=== PATIENT | female | born 1985 | race Hispanic/Latino ===

== ENCOUNTER 2017-12-16 12:36 | Emergency (ER) | payer SELFPAY ==
[2017-12-16] MEDS ORDERED: KETOROLAC 30 MG/ML INJ ONE (14:27)
[2017-12-16 14:33] LABS: Absolute Lymphocytes (CBC) 2.2 K/uL (0.7-4.9); Absolute Monocytes 0.4 K/uL (0.1-1.3); Absolute Neutrophil 2.3 K/uL (1.8-8.0); Basophils % 0.4 % (0-1.3); Eosinophils % 0.9 % (0-4.4); Hematocrit 42.1 % (36.0-45.0); Lymphocytes % 44.3 % (15.3-44.8); MCH 28.8 pg (27.0-35.0); MCV 85.8 fL (80-100); MPV 10.2 fL (7.6-11.3); Monocytes % 8.1 % (3.3-12.3); RBC Red Blood Cell Count 4.91 M/uL (3.86-4.86)
[2017-12-16 14:53] LABS: Protime INR 1.04
[2017-12-16 14:55] LABS: Urine Blood NEGATIVE (NEG); Urine Glucose NEGATIVE (NEG); Urine Protein NEGATIVE (NEG); Urine Specific Gravity 1.025 (1.005-1.030)
[2017-12-16 15:02] LABS: Bicarbonate 28 mEq/L (21-31); Glucose Level 94 mg/dL (65-120); Potassium 3.6 mEq/L (3.6-5.0); Sodium Level 137 mEq/L (135-145)
[2017-12-16 15:07] LABS: ALT/SGPT 18 IU/L (10-60); AST/SGOT 18 IU/L (10-42); Albumin 4.4 g/dL (3.2-5.5); Alkaline Phosphatase 72 IU/L (42-121); BUN Blood Urea Nitrogen 8 mg/dL (6-20); Bilirubin Direct 0.1 mg/dL (0-0.2); Bilirubin Total 0.6 mg/dL (0.3-1.2); Magnesium 1.8 mg/dL (1.8-2.5); Protein, Total 8.1 g/dL (6.0-8.3)
--- NOTE | 2017-12-16 15:08 | RAD REPORT ---
EXAM DESCRIPTION: RAD - Chest Single View - 12/16/2017 2:22 pm CLINICAL HISTORY: Sternal chest pain COMPARISON: None. TECHNIQUE: AP portable chest image was obtained 1419 hours . FINDINGS: Lungs are clear. Heart and vasculature are normal. No measurable pleural effusion and no p neumothorax. No gross bony abnormality seen. No acute aortic findings suspected. IMPRESSION: No acute cardiopulmonary process.
[2017-12-16 16:11] LABS: Urine Specific Gravity 1.025 (1.005-1.030)
--- NOTE | 2017-12-16 18:17 | EDPHYS ---
Physician Documentation [facility] Name: Kassandra Gonsalez Age: 32 yrs Sex: Female : 1985 Arrival Date: 12/16/2017 Time: 12:38 Bed 24 Private MD: None, None ED Physician Marquis Holbrook HPI: 12/16 18:10 This 32 yrs old Female presents to ER via Ambulatory with complaints of Chest kdr Pain. 18:10 The patient or guardian reports chest pain that is located primarily in the substernal kdr area, anterior chest wall, bilaterally, xyphoid area and mid-sternal area. The pain radiates to Associated signs and symptoms: Pertinent positives: None. Pertinent negatives: diaphoresis, dizziness, headache, lower extremity pain, lower extremity swelling, nausea, palpitations, shortness of breath. The chest pain is described as aching, dull. Duration: The patient or guardian reports a single episode, that is still ongoing, but improving. Modifying factors: The symptoms are alleviated by nothing. the symptoms are aggravated by nothing. Severity of pain: At its worst the pain was moderate in the emergency department the pain has improved moderately. The patient has not experienced similar symptoms in the past. The patient has not recently seen a physician. The patient was sitting at her desk with no apparent precipitating activity or events and started to have sharp chest pain. 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 - Social history:: Smoking status: Patient/guardian denies using tobacco. - Ebola Screening: : No symptoms or risks identified at this time. ROS: 18:10 Constitutional: Negative for fever, chills, and weight loss, Eyes: Negative for injury, kdr pain, redness, and discharge, ENT: Negative for injury, pain, and discharge, Neck: Negative for injury, pain, and swelling, Respiratory: Negative for shortness of breath, cough, wheezing, and pleuritic chest pain, Abdomen/GI: Negative for abdominal pain, nausea, vomiting, diarrhea, and constipation, Back: Negative for injury and pain, : Negative for injury, bleeding, discharge, and swelling, MS/Extremity: Negative for injury and deformity, Skin: Negative for injury, rash, and discoloration, Neuro: Negative for headache, weakness, numbness, tingling, and seizure activity. Psych: Negative for depression, anxiety, suicide ideation, homicidal ideation, and hallucinations, Allergy/Immunology: Negative for hives, rash, and allergies, Endocrine: Negative for neck swelling, polydipsia, polyuria, polyphagia, and marked weight changes, Hematologic/Lymphatic: Negative for swollen nodes, abnormal bleeding, and unusual bruising. 18:10 Cardiovascular: Positive for chest pain, Negative for edema, orthopnea, palpitations, paroxysmal nocturnal dyspnea. Exam: 18:10 Constitutional: This is a well developed, well nourished patient who is awake, alert, kdr and in no acute distress. Head/Face: Normocephalic, atraumatic. Eyes: Pupils equal round and reactive to light, extra-ocular motions intact. Lids and lashes normal. Conjunctiva and sclera are non-icteric and not injected. Cornea within normal limits. Periorbital areas with no swelling, redness, or edema. Neck: Trachea midline, no thyromegaly or masses palpated, and no cervical lymphadenopathy. Supple, full range of motion without nuchal rigidity, or vertebral point tenderness. No Meningismus. Chest/axilla: Normal chest wall appearance and motion. Nontender with no deformity. No lesions are appreciated. Cardiovascular: Regular rate and rhythm with a normal S1 and S2. No gallops, murmurs, or rubs. Normal PMI, no JVD. No pulse deficits. Respiratory: Lungs have equal breath sounds bilaterally, clear to auscultation and percussion. No rales, rhonchi or wheezes noted. No increased work of breathing, no retractions or nasal flaring. Abdomen/GI: Soft, non-tender, with normal bowel sounds. No distension or tympany. No guarding or rebound. No evidence of tenderness throughout. Back: No spinal tenderness. No costovertebral tenderness. Full range of motion. Skin: Warm, dry with normal turgor. Normal color with no rashes, no lesions, and no evidence of cellulitis. MS/ Extremity: Pulses equal, no cyanosis. Neurovascular intact. Full, normal range of motion. Neuro: Awake and alert, GCS 15, oriented to person, place, time, and situation. Cranial nerves II-XII grossly intact. Motor strength 5/5 in all extremities. Sensory grossly intact. Cerebellar exam normal. Normal gait. Psych: Awake, alert, with orientation to person, place and time. Behavior, mood, and affect are within normal limits. Vital Signs: 12:43 BP 130 / 92; Pulse 67; Resp 19; Temp 98.0; Pulse Ox 99% on R/A; Weight 79.83 kg; Height aj 5 ft. 5 in. (165.10 cm); 15:07 BP 109 / 75; Pulse 67; Resp 18; Pulse Ox 100% on R/A; tl3 16:20 BP 105 / 63; Pulse 61; Resp 18; Pulse Ox 100% on R/A; mb3 17:23 BP 107 / 78; Pulse 56; Resp 16; Pulse Ox 100% on R/A; Pain 0/10; mb3 18:26 BP 117 / 81; Pulse 58; Resp 16; Pulse Ox 100% on R/A; Pain 0/10; mb3 12:43 Body Mass Index 29.29 (79.83 kg, 165.10 cm) aj MDM: 18:10 Data reviewed: vital signs, nurses notes, lab test result(s), EKG, radiologic studies. kdr Counseling: I had a detailed discussion with the patient and/or guardian regarding: the historical points, exam findings, and any diagnostic results supporting the discharge/admit diagnosis, lab results, radiology results, the need for outpatient follow up. ED course: The patient was much improved in the ED. 18:16 Patient medically screened. kdr 12/16 14:09 Order name: Basic Metabolic Panel; Complete Time: 15:50 kdr 12/16 14:09 Order name: BNP; Complete Time: 15:50 kdr 12/16 14:09 Order name: CBC with Diff; Complete Time: 15:50 kdr 12/16 14:09 Order name: LFT's; Complete Time: 15:50 kdr 12/16 14:09 Order name: Magnesium; Complete Time: 15:50 kdr 12/16 14:09 Order name: PT-INR; Complete Time: 15:50 kdr 12/16 13:09 Order name: EKG Electrocardiogram; Complete Time: 14:45 EDMS 12/16 14:09 Order name: Ptt, Activated; Complete Time: 15:50 kdr 12/16 14:09 Order name: Troponin (emerg Dept Use Only); Complete Time: 15:50 kdr 12/16 14:09 Order name: XRAY Chest (1 view); Complete Time: 15:50 kdr 12/16 14:52 Order name: Urine Dipstick--Ancillary (enter results); Complete Time: 15:50 bd 12/16 15:25 Order name: Urine --Ancillary (enter results); Complete Time: 16:33 bd 12/16 15:50 Order name: Troponin (emerg Dept Use Only); Complete Time: 18:10 kdr 12/16 14:09 Order name: Cardiac monitoring; Complete Time: 14:20 kdr 12/16 14:09 Order name: EKG - Nurse/Tech; Complete Time: 14:44 kdr 12/16 14:09 Order name: IV Saline Lock; Complete Time: 14:21 kdr 12/16 14:09 Order name: Labs collected and sent; Complete Time: 14: [facility] 12/16 14:09 Order name: O2 Per Protocol; Complete Time: 14: kdr 12/16 14:09 Order name: O2 Sat Monitoring; Complete Time: 14: kdr 12/16 14:09 Order name: Urine Dipstick-Ancillary (obtain specimen); Complete Time: 14:21 kdr Administered Medications: 14:45 Drug: TORadol 30 mg Route: IVP; Infused Over: 3 mins; Site: right antecubital; tl3 17:23 Follow up: Response: No adverse reaction mb3 18:36 Follow up: Response: No adverse reaction mb3 Disposition: 12/16/17 18:16 Discharged to Home. Impression: Chest pain on breathing. - Condition is Stable. - Discharge Instructions: Nonspecific Chest Pain, [id number]. - Prescriptions for Ibuprofen 600 mg Oral Tablet - take 1 tablet by ORAL route every 6 hours As needed take with food; 30 tablet. - Medication Reconciliation Form, Thank You Letter, Work release form form. - Follow up: Private Physician; When: 2 - 3 days; Reason: If symptoms return, Further diagnostic work-up, Recheck today's complaints, Continuance of care, Re-evaluation by your physician. - Problem is new. - Symptoms have improved. Signatures: Dispatcher [employer] Carmen Fraga, RN RN Marquis Daniels MD MD kdr Floridalma Salinas RN RN aa5 Martha Darling, RN RN tl3 Iglesia Padilla, ALMA DELIA RN mb3 Corrections: (The following items were deleted from the chart) 13:58 12:43 PMHx: None; rosario george 18:36 18:16 12/16/2017 18:16 Discharged to Home. Impression: Chest pain on breathing. mb3 Condition is Stable. Forms are Medication Reconciliation Form, Thank You Letter, Antibiotic Education, Prescription Opioid Use. Follow up: Private Physician; When: 2 - 3 days; Reason: If symptoms return, Further diagnostic work-up, Recheck today's complaints, Continuance of care, Re-evaluation by your physician. Problem is new. Symptoms have improved. kdr
--- NOTE | 2017-12-16 18:17 | ER ---
Nurse's Notes [facility] Name: Kassandra Gonsalez Age: 32 yrs Sex: Female : 1985 Arrival Date: 12/16/2017 Time: 12:38 Bed 24 Private MD: None, None Diagnosis: Chest pain on breathing Presentation: 12/16 12:42 Presenting complaint: Patient states: Sternal chest pain that started this AM. Patient aj reports pain is persistent. Transition of care: patient was not received from another setting of care. Onset of symptoms was December 16, 2017. Care prior to arrival: None. 12:42 Method Of Arrival: Ambulatory aj 12:42 Acuity: GIOVANI 3 aj 13:50 Risk Assessment: Do you want to hurt yourself or someone else? Patient reports no aa5 desire to harm self or others. Initial Sepsis Screen: Does the patient meet any 2 criteria? No. Patient's initial sepsis screen is negative. Does the patient have a suspected source of infection? No. Patient's initial sepsis screen is negative. Triage Assessment: 12:43 General: Appears in no apparent distress. comfortable, Behavior is calm, cooperative, aj appropriate for age. Pain: Complains of pain in mid-sternal area. Neuro: Level of Consciousness is awake, alert, obeys commands, Oriented to person, place, time, situation, Appropriate for age. Cardiovascular: Reports chest pain, Capillary refill < 3 seconds in bilateral fingers Patient's skin is warm and dry. Respiratory: Airway is patent Respiratory effort is even, unlabored, Respiratory pattern is regular, symmetrical. Derm: Skin is intact, is healthy with good turgor, Skin is pink, warm \\T\\ dry. normal. 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 - Social history:: Smoking status: Patient/guardian denies using tobacco. - Ebola Screening: : No symptoms or risks identified at this time. Screenin:50 Abuse screen: Denies threats or abuse. Nutritional screening: No deficits noted. aa5 Tuberculosis screening: No symptoms or risk factors identified. Fall Risk None identified. Assessment: 13:50 General: Appears comfortable, Behavior is calm, cooperative. Pain: Complains of pain in aa5 mid-sternal area Pain does not radiate. Pain currently is 8 out of 10 on a pain scale. Quality of pain is described as pt states "it's just a continuous pain" Pain began today Is continuous. Neuro: Level of Consciousness is awake, alert, obeys commands, Oriented to person, place, time, situation. Cardiovascular: Heart tones S1 S2 present Rhythm is regular. Respiratory: Airway is patent Respiratory effort is even, unlabored, Respiratory pattern is regular, symmetrical, Breath sounds are clear bilaterally. Denies cough, shortness of breath. GI: No signs and/or symptoms were reported involving the gastrointestinal system. Patient currently denies nausea, vomiting. : No signs and/or symptoms were reported regarding the genitourinary system. EENT: No signs and/or symptoms were reported regarding the EENT system. Derm: Skin is pink, warm \\T\\ dry. Musculoskeletal: Range of motion: intact in all extremities. 14:04 Reassessment: Report given to ALMA DELIA Thomas. aa5 15:07 Reassessment: Patient and/or family updated on plan of care and expected duration. Pain tl3 level reassessed. Patient is alert, oriented x 3, equal unlabored respirations, skin warm/dry/pink. Dr Holbrook at bedside for evaluation. 16:20 Reassessment: Patient appears in no apparent distress at this time. Patient and/or mb3 family updated on plan of care and expected duration. Pain level reassessed. Patient is alert, oriented x 3, equal unlabored respirations, skin warm/dry/pink. Patient states feeling better. Patient states symptoms have improved. 17:24 Reassessment: Patient appears in no apparent distress at this time. Patient and/or mb3 family updated on plan of care and expected duration. Pain level reassessed. Patient is alert, oriented x 3, equal unlabored respirations, skin warm/dry/pink. Vital Signs: 12:43 BP 130 / 92; Pulse 67; Resp 19; Temp 98.0; Pulse Ox 99% on R/A; Weight 79.83 kg; Height aj 5 ft. 5 in. (165.10 cm); 15:07 BP 109 / 75; Pulse 67; Resp 18; Pulse Ox 100% on R/A; tl3 16:20 BP 105 / 63; Pulse 61; Resp 18; Pulse Ox 100% on R/A; mb3 17:23 BP 107 / 78; Pulse 56; Resp 16; Pulse Ox 100% on R/A; Pain 0/10; mb3 18:26 BP 117 / 81; Pulse 58; Resp 16; Pulse Ox 100% on R/A; Pain 0/10; mb3 12:43 Body Mass Index 29.29 (79.83 kg, 165.10 cm) ED Course: 12:38 Patient arrived in ED. mr 12:39 None, None is Private Physician. mr 12:42 Triage completed. aj 12:43 Arm band placed on right wrist. Patient placed in waiting room, Patient notified of aj wait time. EKG completed in triage. Results shown to MD. 12:43 EKG done, by neurophysiological technician. reviewed by Marquis Holbrook MD. at1 13:48 Floridalma Salinas RN is Primary Nurse. aa5 13:50 Marquis Holbrook MD is Attending Physician. kdr 14:00 surveillance system monitor on. Pulse ox on. NIBP on. aa5 14:00 Patient has correct armband on for positive identification. Placed in gown. Bed in low aa5 position. Call light in reach. Side rails up X2. 14:03 No provider procedures requiring assistance completed. Patient maintains SpO2 aa5 saturation greater than 95% on room air. 14:20 X-ray completed. Portable x-ray completed in exam room. Patient tolerated procedure kp1 well. 14:21 XRAY Chest (1 view) In Process Unspecified. EDMS 14:21 Initial lab(s) drawn, by me, sent to lab. Urine collected: clean catch specimen, clear. tl3 Inserted saline lock: 20 gauge in right antecubital area, using aseptic technique. Blood collected. 15:15 Report given to Iglesia FLANNERY. tl3 18:35 IV discontinued, intact, bleeding controlled, No redness/swelling at site. Pressure mb3 dressing applied. Administered Medications: 14:45 Drug: TORadol 30 mg Route: IVP; Infused Over: 3 mins; Site: right antecubital; tl3 17:23 Follow up: Response: No adverse reaction mb3 18:36 Follow up: Response: No adverse reaction mb3 Outcome: 18:16 Discharge ordered by . kdr 18:35 Discharged to home ambulatory. mb3 18:35 Condition: stable 18:35 Discharge instructions given to patient, Instructed on discharge instructions, follow up and referral plans. medication usage, Demonstrated understanding of instructions, follow-up care, medications, Prescriptions given X 1. 18:36 Patient left the ED. mb3 Signatures: Dispatcher [employer] EDMS Carmen Olson, RN RN Marquis Daniels MD MD kdr Rivera, Maria mr Salinas, Floridalma, RN RN aa5 Carmen george, family literacy coordinator EKG Tat1 Minoo Mcqueen kp1 Martha Darling RN RN tl3 Iglesia Padilla RN RN mb3 Corrections: (The following items were deleted from the chart) 13:58 12:43 PMHx: None; rosario george
--- NOTE | 2017-12-17 06:58 | EKG ---
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
== END 2017-12-16 18:36 | disposition home or self-care (01) ==
LOC: ER 12:36
DX: R07.1 Chest pain on breathing (principal)
CPT/HCPCS: 36415; 71045; 80048; 80076; 81003; 81025; 83735; 83880; 84484; 85025; 85610; 85730; 93005; 96374; 99285

== ENCOUNTER 2018-04-19 08:27 | Emergency (ER) | payer OTHER, SELFPAY ==
[2018-04-19] MEDS ORDERED: KETOROLAC 30 MG/ML INJ ONE (09:22)
[2018-04-19 09:50] LABS: Urine Blood 1+ (NEG); Urine Glucose NEGATIVE (NEG); Urine Protein TRACE (NEG); Urine Specific Gravity >1.030 (1.005-1.030)
--- NOTE | 2018-04-19 09:59 | RAD REPORT ---
EXAM DESCRIPTION: CT - Stone Protocol - 04/19/2018 9:41 am CLINICAL HISTORY: Abdominal pain. Left flank pain COMPARISON: May 2017 TECHNIQUE: Computed axial tomography of the abdomen pelvis was obtained without oral or IV contrast. Lack of IV and oral contrast limits evaluation of solid organs, bowel, and vessels. Coronal reformat kevin images were obtained and reviewed. All CT scans are performed using dose optimization technique as appropriate and may include automated exposure control or mA/KV adjustment according to patient size. FINDINGS: A renal calculus is not seen. An ureteral calculus is not noted. A bladder calculus is not present. The liver, spleen, pancreas and adrenals appear grossly normal There is no evidence of diverticulitis. The appendix appears normal An adnexal mass is not seen. A tiny umbilical hernia is present IMPRESSION: Negative for a genitourinary calculus
--- NOTE | 2018-04-19 10:23 | ER ---
Nurse's Notes [facility] Name: Kassandra Gonsalez Age: 32 yrs Sex: Female : 1985 Arrival Date: 04/19/2018 Time: 08:31 Bed 20 Private MD: None, None Diagnosis: Low back pain Presentation: 04/19 08:42 Presenting complaint: Patient states: L sided back and flank pain, constant and dull ch for the past week, worse the past 24 hrs. denies NVD, denies diff urinating, denies burning with urination. states she felt under the weather yesterday, but did not check for fever. Transition of care: patient was not received from another setting of care. Onset of symptoms was April 12, 2018. Risk Assessment: Do you want to hurt yourself or someone else? Patient reports no desire to harm self or others. Initial Sepsis Screen: Does the patient meet any 2 criteria? No. Patient's initial sepsis screen is negative. Does the patient have a suspected source of infection? No. Patient's initial sepsis screen is negative. Care prior to arrival: None. 08:42 Method Of Arrival: Ambulatory 08:42 Acuity: GIOVANI 3 ch Triage Assessment: 08:44 General: Appears in no apparent distress. comfortable, Behavior is calm, cooperative, ch appropriate for age. Pain: Complains of pain in posterior aspect of left lateral abdomen Pain currently is 9 out of 10 on a pain scale. Pain began gradually, one week ago. Neuro: No deficits noted. Respiratory: No deficits noted. Airway is patent Respiratory effort is even, unlabored, Breath sounds are clear bilaterally. GI: No signs and/or symptoms were reported involving the gastrointestinal system. : Reports pain in left flank(s). Musculoskeletal: Capillary refill < 3 seconds, in bilateral fingers. toes. 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 - Social history:: Smoking status: Patient/guardian denies using tobacco. - Ebola Screening: : Patient negative for fever greater than or equal to 101.5 degrees Fahrenheit, and additional compatible Ebola Virus Disease symptoms Patient denies exposure to infectious person Patient denies travel to an Ebola-affected area in the 21 days before illness onset No symptoms or risks identified at this time. Screenin:47 Abuse screen: Denies threats or abuse. Denies injuries from another. Nutritional ch screening: No deficits noted. Tuberculosis screening: No symptoms or risk factors identified. Fall Risk None identified. Assessment: 08:47 General: Appears in no apparent distress. comfortable. Neuro: No deficits noted. ch 10:08 Reassessment: Patient appears in no apparent distress at this time. Patient and/or ch family updated on plan of care and expected duration. Pain level reassessed. Patient is alert, oriented x 3, equal unlabored respirations, skin warm/dry/pink. Patient states feeling better. Patient states symptoms have improved. Neuro: No deficits noted. Level of Consciousness is awake, alert, obeys commands, Oriented to person, place, time, situation, Dosier Operator are equal bilaterally Moves all extremities. Full function Gait is steady, Speech is normal, Facial symmetry appears normal, Facial symmetry: tongue is midline, Pupils are PERRLA. Respiratory: Airway is patent Respiratory effort is even, unlabored, Breath sounds are clear bilaterally. GI: No signs and/or symptoms were reported involving the gastrointestinal system. : Reports pain flank(s). EENT: No signs and/or symptoms were reported regarding the EENT system. Derm: Skin is pink, warm \T\ dry. 10:14 Reassessment: pt hits call park and notifies me she does not feel any better, that her ch pain is unchanged. Lois notified, no new orders. pt states someone could come pick her up but it would be a few hours. 10:34 Reassessment: Patient appears in no apparent distress at this time. No changes from previously documented assessment. Patient and/or family updated on plan of care and expected duration. Pain level reassessed. Patient is alert, oriented x 3, equal unlabored respirations, skin warm/dry/pink. pt declines further medications at this time. Vital Signs: 08:44 BP 125 / 76; Pulse 80; Resp 16; Pulse Ox 99% on R/A; Weight 74.84 kg; Height 5 ft. 5 ch in. (165.10 cm); Pain 9/10; 09:02 Temp 98.6(O); ch 10:08 BP 110 / 52; Pulse 75; Resp 14; Temp 98.5; Pulse Ox 99% on R/A; Pain 6/10; ch 10:14 Pain 9/10; ch 10:34 BP 125 / 62; Pulse 62; Resp 18; Temp 98.5; Pulse Ox 99% on R/A; Pain 8/10; ch 08:44 Body Mass Index 27.46 (74.84 kg, 165.10 cm) ED Course: 08:31 Patient arrived in ED. mr 08:31 None, None is Private Physician. mr 08:42 Lawanda Lambert, ALMA DELIA is Primary Nurse. ch 08:43 Triage completed. ch 08:44 Arm band placed on left wrist. Patient placed in an exam room, on a stretcher, on pulse ch oximetry. Urine obtained. Urine : negative. 08:47 No apparent distress. Resting quietly. ch 08:47 Patient has correct armband on for positive identification. Placed in gown. Bed in low ch position. Call light in reach. Side rails up X 1. Pulse ox on. NIBP on. Warm blanket given. 08:47 No provider procedures requiring assistance completed. 08:51 Lois Dye FNP-C is [facility]. kb 08:51 Jonathan Mckee MD is Attending Physician. kb 09:37 CT completed. Patient tolerated procedure well. Patient moved to CT via wheelchair. sj Patient moved back from CT. 09:41 CT Stone Protocol In Process Unspecified. EDMS 10:34 Patient did not have IV access during this emergency room visit. Administered Medications: 09:28 Drug: TORadol 60 mg Route: IM; Site: left gluteus; ch 10:15 Follow up: Response: No adverse reaction; No change in condition Outcome: 10:22 Discharge ordered by . kb 10:34 Discharged to home ambulatory. ch 10:34 Condition: stable 10:34 Discharge instructions given to patient, Instructed on discharge instructions, follow up and referral plans. medication usage, Demonstrated understanding of instructions, follow-up care, medications, Prescriptions given X 2. 10:36 Patient left the ED. Signatures: Dispatcher [employer] EDRI Lois Dye FNP-C WIRE COINER-Ckb Lawanda Lambert, ALMA DELIA RN Debbie Coelho mr Lan LilianeFloridalma Kessler, RN RN aa5 Corrections: (The following items were deleted from the chart) 08:37 08:36 Floridalma Salinas, ALMA DELIA is Primary Nurse. aa5 aa5
--- NOTE | 2018-04-19 10:23 | EDPHYS ---
Physician Documentation [facility] Name: Kassandra Gonsalez Age: 32 yrs Sex: Female : 1985 Arrival Date: 04/19/2018 Time: 08:31 Bed 20 Private MD: None, None ED Physician Jonathan Mckee HPI: 04/19 10:10 This 32 yrs old Female presents to ER via Ambulatory with complaints of Flank kb Pain, Back Pain. 10:10 The patient complains of pain in the right flank. The pain does not radiate. Onset: The kb symptoms/episode began/occurred 1.5 week(s) ago. Modifying factors: The symptoms are alleviated by nothing. the symptoms are aggravated by movement, palpation/percussion. Associated signs and symptoms: The patient has no apparent associated signs or symptoms. Severity of pain: At its worst the pain was moderate in the emergency department the pain is unchanged. The patient has not experienced similar symptoms in the past. The patient has not recently seen a physician. Pt reports left flank/low back pain that started a week and a half ago. States the pain is worse with movement, different positions and palpation. 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 - Social history:: Smoking status: Patient/guardian denies using tobacco. - Ebola Screening: : Patient negative for fever greater than or equal to 101.5 degrees Fahrenheit, and additional compatible Ebola Virus Disease symptoms Patient denies exposure to infectious person Patient denies travel to an Ebola-affected area in the 21 days before illness onset No symptoms or risks identified at this time. ROS: 10:08 Constitutional: Negative for fever, chills, and weight loss, Cardiovascular: Negative kb for chest pain, palpitations, and edema, Respiratory: Negative for shortness of breath, cough, wheezing, and pleuritic chest pain, Abdomen/GI: Negative for abdominal pain, nausea, vomiting, diarrhea, and constipation, : Negative for injury, bleeding, discharge, and swelling, MS/Extremity: Negative for injury and deformity, Skin: Negative for injury, rash, and discoloration, Neuro: Negative for headache, weakness, numbness, tingling, and seizure. 10:08 Back: Positive for flank pain, on the left. Exam: 10:10 Constitutional: This is a well developed, well nourished patient who is awake, alert, kb and in no acute distress. Head/Face: Normocephalic, atraumatic. Chest/axilla: Normal chest wall appearance and motion. Nontender with no deformity. No lesions are appreciated. Cardiovascular: Regular rate and rhythm with a normal S1 and S2. No gallops, murmurs, or rubs. Normal PMI, no JVD. No pulse deficits. Respiratory: Lungs have equal breath sounds bilaterally, clear to auscultation and percussion. No rales, rhonchi or wheezes noted. No increased work of breathing, no retractions or nasal flaring. Abdomen/GI: Soft, non-tender, with normal bowel sounds. No distension or tympany. No guarding or rebound. No evidence of tenderness throughout. Skin: Warm, dry with normal turgor. Normal color with no rashes, no lesions, and no evidence of cellulitis. MS/ Extremity: Pulses equal, no cyanosis. Neurovascular intact. Full, normal range of motion. Neuro: Awake and alert, GCS 15, oriented to person, place, time, and situation. Cranial nerves II-XII grossly intact. Motor strength 5/5 in all extremities. Sensory grossly intact. Cerebellar exam normal. Normal gait. 10:10 Back: pain, that is mild, that is moderate, of the right flank, CVA tenderness, that is mild, is noted on the right. Vital Signs: 08:44 BP 125 / 76; Pulse 80; Resp 16; Pulse Ox 99% on R/A; Weight 74.84 kg; Height 5 ft. 5 ch in. (165.10 cm); Pain 9/10; 09:02 Temp 98.6(O); ch 10:08 BP 110 / 52; Pulse 75; Resp 14; Temp 98.5; Pulse Ox 99% on R/A; Pain 6/10; ch 10:14 Pain 9/10; ch 10:34 BP 125 / 62; Pulse 62; Resp 18; Temp 98.5; Pulse Ox 99% on R/A; Pain 8/10; ch 08:44 Body Mass Index 27.46 (74.84 kg, 165.10 cm) ch MDM: 08:51 Patient medically screened. kb 10:09 Data reviewed: vital signs, nurses notes. Data interpreted: Pulse oximetry: on room air kb is 99 %. Interpretation: normal. 10:09 Counseling: I had a detailed discussion with the patient and/or guardian regarding: the kb historical points, exam findings, and any diagnostic results supporting the discharge/admit diagnosis, lab results, radiology results, the need for outpatient follow up, a family practitioner, to return to the emergency department if symptoms worsen or persist or if there are any questions or concerns that arise at home. 04/19 09:00 Order name: Urine Dipstick--Ancillary (enter results); Complete Time: 09:54 bd 04/19 09:00 Order name: Urine --Ancillary (enter results); Complete Time: 09:54 bd 04/19 08:51 Order name: Urine Test (obtain specimen); Complete Time: 09:01 kb 04/19 08:51 Order name: Urine Dipstick-Ancillary (obtain specimen); Complete Time: 09:01 kb 04/19 09:02 Order name: CT Stone Protocol; Complete Time: 10:05 ch Administered Medications: 09:28 Drug: TORadol 60 mg Route: IM; Site: left gluteus; ch 10:15 Follow up: Response: No adverse reaction; No change in condition ch Disposition: 12:20 Co-signature as Attending Physician, Jonathan Mckee MD. Disposition: 04/19/18 10:22 Discharged to Home. Impression: Low back pain. - Condition is Stable. - Discharge Instructions: Musculoskeletal Pain, Back Pain, Adult, [id number]. - Prescriptions for Cyclobenzaprine 10 mg Oral Tablet - take 1 tablet by ORAL route every 8 hours As needed; 21 tablet. Diclofenac Sodium 75 mg Oral Tablet, Delayed Release (E.C.) - take 1 tablet by ORAL route 2 times per day As needed; 30 tablet. - Medication Reconciliation Form, Thank You Letter, Antibiotic Education, Prescription Opioid Use form. - Follow up: Emergency Department; When: As needed; Reason: Worsening of condition. Follow up: Private Physician; When: 2 - 3 days; Reason: Recheck today's complaints, Continuance of care, Re-evaluation by your physician. Signatures: Dispatcher [employer] Lois Washington FNP-C FNP-Ckb Hammond, Christina, RN RN Jonathan Mckee MD MD gs Corrections: (The following items were deleted from the chart) 10:36 10:22 04/19/2018 10:22 Discharged to Home. Impression: Low back pain. Condition is ch Stable. Discharge Instructions: Musculoskeletal Pain, Back Pain, Adult, [id number]. Prescriptions for Cyclobenzaprine 10 mg Oral Tablet - take 1 tablet by ORAL route every 8 hours As needed; 21 tablet, Diclofenac Sodium 75 mg Oral Tablet, Delayed Release (E.C.) - take 1 tablet by ORAL route 2 times per day As needed; 30 tablet. and Forms are Medication Reconciliation Form, Thank You Letter, Antibiotic Education, Prescription Opioid Use. Follow up: Emergency Department; When: As needed; Reason: Worsening of condition. Follow up: Private Physician; When: 2 - 3 days; Reason: Recheck today's complaints, Continuance of care, Re-evaluation by your physician. kb
== END 2018-04-19 10:36 | disposition home or self-care (01) ==
LOC: ER 08:27
DX: M54.5 Low back pain (principal); F90.9 Attention-deficit hyperactivity disorder, unspecified type
CPT/HCPCS: 74176; 76377; 81003; 81025; 96372; 99284

== ENCOUNTER 2022-12-17 23:00 | Emergency (ER) | payer OTHER ==
--- OUTSIDE RECORDS SUMMARY | 2022-12-17 23:07 | XMS REPORT | Continuity of Care Document ---
:1985 Author Organization [facility] t Address [address] [facility] [address] [place] [address] Care Team Providers Name Role Phone Enio Douglas Attending Clinician Unavailable Lilia Garcia Attending Clinician Unavailable Lilia Garcia Admitting Clinician Unavailable Payers Payer Name Policy Type Policy Number Effective Date Expiration Date S ource Problems Condition Condition Condition Status Onset Resolution Last Treating Co mments Source Name Details Category Date Date Treatment Clinician Date [id number] Attention Problem Comm on deficit Spirit hyperactiv - [facility] it[facility] (ADHD)[facility] tly inattentiv e type [id number] Primary Problem Common insomnia Spirit - [facility] [id number] Body mass Problem Com mon index Spirit [BMI] - [facility] 30.0-30.9, [facility] [id number] Other Problem Common obesity Spirit due to - [facility] excess calories [facility] [id number] History of Problem Co mmon abnormal Spirit cervical - [facility] Pap smear [facility] [id number] Cold Problem Common [facility] - [facility] [id number] Migraine Problem Comm on without Spirit aura and - [facility] without [facility] intractabl e [id number] Cervical Problem Comm on herniated [facility] disc [facility] Allergies, Adverse Reactions, Alerts This patient has no known allergies or adverse reactions. Social History Social Habit Start Date Stop Date Quantity Comments Source History of Tobacco Use Co mmon [facility] Sex Assigned At Com mon [facility] Smoking Status Start Date Stop Date Source Never Smoker Common [facility] Medications Ordered Filled Start Stop Current Ordering Indication Dosage Frequency Signature Comments Components Source Medication Medication Date Date Medication? Clinician (SIG) Name Name Amphetamine Amphetamine No 1{table BID Amphetamin -Dextroamph -Dextroamph 1-19 t} e-Dextroam etamine 10 etamine 10 00:00: phetamine MG MG 00 10 MG Adderall 10 Adderall 10 No 1{table BID Adderall MG MG 1-02 t} 10 MG 00:00: 00 Adderall 10 Adderall 10 0 No 1{table BID Adderall MG MG 1-02 t} 10 MG 00:00: 00 Amphetamine Amphetamine 2021-07 No 1{table BID Amphetamin -Dextroamph -Dextroamph 1-28 t} e-Dextroam etamine 10 etamine 10 00:00: phetamine MG MG 00 10 MG Azithromyci Azithromyci 2021-07- No QD Azithromyc n 250 MG n 250 MG 1-21 11-26 in 250 MG 00:00: 00:00 00 :00 Amphetamine Amphetamine 2021-07 No 1{table BID Amphetamin -Dextroamph -Dextroamph 0-21 t} e-Dextroam etamine 10 etamine 10 00:00: phetamine MG MG 00 10 MG Amphetamine Amphetamine 2021-07 No 1{table BID Amphetamin -Dextroamph -Dextroamph 0-21 t} e-Dextroam etamine 10 etamine 10 00:00: phetamine MG MG 00 10 MG Amphetamine Amphetamine 2021-07 No 1{table BID Amphetamin -Dextroamph -Dextroamph 0-21 t} e-Dextroam etamine 10 etamine 10 00:00: phetamine MG MG 00 10 MG Amphetamine Amphetamine 2021-1 No 1{table BID Amphetamin -Dextroamph -Dextroamph 0-21 t} e-Dextroam etamine 10 etamine 10 00:00: phetamine MG MG 00 10 MG Adderall 10 Adderall 10 2021-1 No 1{table BID Adderall MG MG 0-17 t} 10 MG 00:00: 00 Adderall 10 Adderall 10 2021- No 1{table BID Adderall MG MG 0-17 t} 10 MG 00:00: 00 Adderall 10 Adderall 10 2021-1 No 1{table BID Adderall MG MG 0-17 t} 10 MG 00:00: 00 Adderall 10 Adderall 10 2021- No 1{table BID Adderall MG MG 0-17 t} 10 MG 00:00: 00 Adderall 10 Adderall 10 2021-1 No 1{table BID Adderall MG MG 0-17 t} 10 MG 00:00: 00 Amphetamine Amphetamine 2021-0 No 1{table BID Amphetamin -Dextroamph -Dextroamph 9-12 t} e-Dextroam etamine 10 etamine 10 00:00: phetamine MG MG 00 10 MG Amphetamine Amphetamine 2021-0 No 1{table BID Amphetamin -Dextroamph -Dextroamph 9-12 t} e-Dextroam etamine 10 etamine 10 00:00: phetamine MG MG 00 10 MG Amphetamine Amphetamine 2021-0 No 1{table BID Amphetamin -Dextroamph -Dextroamph 9-12 t} e-Dextroam etamine 10 etamine 10 00:00: phetamine MG MG 00 10 MG Adderall 10 Adderall 10 2021-0 No 1{table BID Adderall MG MG 8-03 t} 10 MG 00:00: 00 Adderall 10 Adderall 10 2021-0 No 1{table BID Adderall MG MG 8-03 t} 10 MG 00:00: 00 Adderall Adderall 2020-0 Yes Enio 1 tablet Common 04-02 [facility] 00:00: - [facility] 00 [facility] Adderall Adderall 2020-0 Yes Enio 1 tablet Common 8-04 [facility] 00:00: - [facility] 00 [facility] Ning Barclay 2019-0 No 40mg Common (Triamcinol (Triamcinol 8-29 S pirit one) one) 00:00: - [facility] 00 [facility] Ning Kenjennifer 2019-0 No 40mg Common (Triamcinol (Triamcinol 8-29 S pirit one) one) 00:00: - [facility] 00 [facility] Ning Kenjennifer 2019-0 No 40mg Common (Triamcinol (Triamcinol 8-29 S pirit one) one) 00:00: - [facility] 00 [facility] Ning Kenjennifer 2019-0 No 40mg Common (Triamcinol (Triamcinol 8-29 S pirit one) one) 00:00: - [facility] 00 [facility] Ning Kenjennifer 2019-0 No 40mg Common (Triamcinol (Triamcinol 8-29 S pirit one) one) 00:00: - [facility] 00 [facility] Ning Kenjennifer 2019-0 No 40mg Common (Triamcinol (Triamcinol 8-29 S pirit one) one) 00:00: - [facility] 00 [facility] Ning Kenjennifer 2019-0 No 40mg Common (Triamcinol (Triamcinol 8-29 S pirit one) one) 00:00: - [facility] 00 [facility] Ning Kenjennifer 2019-0 No 40mg Common (Triamcinol (Triamcinol 8-29 S pirit one) one) 00:00: - CHI [facility] Ning Kenjennifer 2019-0 No 40mg Common (Triamcinol (Triamcinol 8-29 S pirit one) one) 00:00: - [facility] 00 [facility] Immunizations Ordered Immunization Filled Immunization Date Status Commen ts Source Name Name Afluria single dose Afluria single dose 2019-06-06 Completed [facility] 09:19:00 [facility] Afluria single dose Afluria single dose 2019-06-06 Completed [facility] 09:19: [facility] Afluria single dose Afluria single dose 2019-06-06 Completed [facility] 09:19:00 [facility] Afluria single dose Afluria single dose 2019-06-06 Completed [facility] 09:19:00 - [facility] Afluria single dose Afluria single dose 2019-06-06 Completed [facility] 09:19:00 - [facility] Afluria single dose Afluria single dose 2019-06-06 Completed [facility] 09:19:00 - [facility] Afluria single dose Afluria single dose 2019-06-06 Completed [facility] 09:19:00 - [facility] Afluria single dose Afluria single dose 2019-06-06 Completed [facility] 09:19:00 - [facility] Afluria single dose Afluria single dose 2019-06-06 Completed [facility] 09:19:00 - [facility] Afluria single dose Afluria single dose 2019-06-06 Completed [facility] 00:00:00 - [facility] Afluria Afluria 2018-06-07 Completed [facility] 11:43:00 - [facility] Afluria Afluria 2018-06-07 Completed [facility] 11:43:00 - [facility] Afluria Afluria 2018-06-07 Completed [facility] 11:43:00 - [facility] Afluria Afluria 2018-06-07 Completed [facility] 11:43:00 - [facility] Afluria Afluria 2018-06-07 Completed [facility] 11:43:00 - [facility] Afluria Afluria 2018-06-07 Completed [facility] 11:43:00 - [facility] Afluria Afluria 2018-06-07 Completed [facility] 11:43:00 - [facility] Afluria Afluria 2018-06-07 Completed [facility] 11:43:00 - [facility] Afluria Afluria 2018-06-07 Completed [facility] 11:43:00 - [facility] Vital Signs Vital Name Observation Time Observation Value Comments Source height 2022-06-15 16:50:00 64 [in_i] [facility] weight 2022-06-15 16:50:00 174 [lb_av] [facility] temperature 2022-06-15 16:50:00 98 [degF] [facility] bmi 2022-06-15 16:50:00 29.86 kg/m2 Common S pirit - [facility] blood pressure 2022-06-15 16:50:00 125 mm[Hg] [facility] - systolic [facility] blood pressure 2022-06-15 16:50:00 67 mm[Hg] [facility] - diastolic [facility] height 2022-03-26 08:30:00 64 [in_i] Common S pirit - [facility] weight 2022-03-26 08:30:00 180.4 [lb_av] Common [facility] temperature 2022-03-26 08:30:00 97.4 [degF] Common S pirit [facility] bmi 2022-03-26 08:30:00 30.96 kg/m2 [facility] oximetry 2022-03-26 08:30:00 99 % [facility] 2022-03-26 08:30:00 18 /min Comm on [facility] blood pressure 2022-03-26 08:30:00 124 mm[Hg] Common [facility] - systolic [facility] blood pressure 2022-03-26 08:30:00 66 mm[Hg] Common [facility] - diastolic [facility] height 2022-02-25 08:50:00 64 [in_i] Common S pirit [facility] weight 2022-02-25 08:50:00 180 [lb_av] Common S pirit [facility] temperature 2022-02-25 08:50:00 97.6 [degF] Common S pirit [facility] bmi 2022-02-25 08:50:00 30.89 kg/m2 Common S pirit [facility] oximetry 2022-02-25 08:50:00 98 % Common S [facility] respiratory rate 2022-02-25 08:50:00 16 /min Comm on [facility] blood pressure 2022-02-25 08:50:00 123 mm[Hg] Common [facility] - systolic [facility] blood pressure 2022-02-25 08:50:00 67 mm[Hg] Common [facility] - diastolic [facility] Procedures This patient has no known procedures. Encounters Start End Encounter Admission Attending Care Care Encounter Source Date/Time Date/Time Type Type Clinicians Facility Department ID 2022-06-15 Outpatient Douglas, STLMLC STLC [id number] Common 16:49:00 Enio [facility] 2022-06-08 Outpatient Douglas, STLMLC STLMLC [id number] Common 11:24:00 Enio [facility] 2022-02-25 Outpatient Douglas, STLMLC STLMLC [id number] Common 08:37:01 Enio [facility] 2021-08-20 Outpatient Douglas, STLMLC STLC [id number] Common 13:34:35 Enio [id number] [facility] 2021-08-20 Outpatient Douglas, STLMLC STLC [id number] Common 13:21:23 Enio 10725 [facility] 2021-08-20 Outpatient Douglas, STLMLC STLMLC [id number] Common 13:08:30 Enio 79869 [facility] 2021-08-20 Outpatient Douglas, STLMLC STLC [id number] Common 12:45:16 Enio 99824 [facility] 2021-08-20 Outpatient Douglas, STLMLC STLMLC [id number] Common 12:07:19 Enio 12678 [facility] 2021-08-20 Outpatient Douglas, STLMLC STLMLC [id number] Common 12:01:39 Enio 32937 [facility] 2021-08-20 Outpatient Douglas, STLMLC STLC [id number] Common 12:00:58 Enio 70344 [facility] 2021-08-20 Outpatient Duoglas, STLMLC STLMLC [id number] Common 11:29:39 Enio 43758 [facility] 2021-08-20 Outpatient Douglas, STLMLC STLMLC [id number] Common 11:24:48 Enio 18431 [facility] 2021-08-20 Outpatient Douglas, STLMLC STLMLC [id number] Common 11:11:37 Enio 04111 [facility] 2021-08-20 Outpatient Douglas, STLMLC STLMLC [id number] Common 11:10:33 Enio 66415 [facility] 2021-08-20 Outpatient Douglas, STLMLC STLMLC [id number] Common 11:05:59 Enio 82768 [facility] 2021-08-20 Outpatient Douglas, STLMLC STLMLC [id number] Common 11:05:41 Enio [id number] [facility] 2022-10-22 2022-10-22 Outpatient OLIVE Garcia, HCACL ANUJA [id number] [facility] 12:00:00 12:00:00 Lilia 43 [facility] 2022-10-13 2022-10-13 Outpatient OLIVE Garcia, HCACL ANUJA [id number] [facility] 12:00:00 12:00:00 Lilia 61 [facility] 2022-08-04 2022-08-04 (TEL) STLMLC STLMLC [id number] Co mmon 00:00:00 00:00:00 [facility] 2022-06-15 2022-06-15 OFFICE STLMLC STLMLC [id number] Co mmon 00:00:00 00:00:00 VISIT [facility] LEVEL 4 [facility] 2022-06-09 2022-06-09 (TEL) STLMLC STLMLC [id number] Co mmon 00:00:00 00:00:00 [facility] 2022-05-14 2022-05-14 (TEL) STLMLC STLMLC [id number] Co mmon 00:00:00 00:00:00 [facility] 2022-05-07 2022-05-07 (TEL) STLMLC STLMLC [id number] Co mmon 00:00:00 00:00:00 [facility] 2022-04-06 2022-04-06 (TEL) STLMLC STLMLC [id number] Co mmon 00:00:00 00:00:00 [facility] 2022-03-26 2022-03-26 PREV VISIT STLMLC STLMLC [id number] Common 00:00:00 00:00:00 EST AGE [facility] 18-39 [facility] 2022-02-26 2022-02-26 (TEL) STLMLC STLMLC [id number] Co mmon 00:00:00 00:00:00 [facility] 2022-02-25 2022-02-25 OFFICE STLMLC STLMLC [id number] Co mmon 00:00:00 00:00:00 VISIT [facility] 4 [facility] 2020-12-19 2020-12-19 Outpatient STLMLC STLMLC [id number] Common 00:00:00 00:00:00 [facility] 2020-12-18 2020-12-18 Outpatient STLMLC STLMLC [id number] Common 00:00:00 00:00:00 [facility] 2020-10-24 2020-10-24 Outpatient STLMLC STLMLC [id number] Common 00:00:00 00:00:00 [facility] 2020-10-22 2020-10-22 Outpatient STLMLC STLMLC [id number] Common 00:00:00 00:00:00 [facility] 2020-10-22 2020-10-22 Outpatient STLMLC STLMLC [id number] Common 00:00:00 00:00:00 [facility] 2020-10-21 2020-10-21 Outpatient STLMLC STLMLC [id number] Common 00:00:00 00:00:00 [facility] 2020-10-21 2020-10-21 Outpatient STLMLC STLMLC [id number] Common 00:00:00 00:00:00 [facility] 2020-08-122020-08-12 Outpatient STLMLC STLMLC [id number] Common 00:00:00 00:00:00 [facility] 2020-06-25 2020-06-25 Outpatient STLMLC STLMLC [id number] Common 00:00:00 00:00:00 [facility] 2020-06-24 2020-06-24 Outpatient STLMLC STLMLC [id number] Common 00:00:00 00:00:00 [facility] 2020-06-21 2020-06-21 Outpatient STLMLC STLMLC [id number] Common 00:00:00 00:00:00 [facility] 2020-06-13 2020-06-13 Outpatient STLMLC STLMLC [id number] Common 00:00:00 00:00:00 [facility] 2020-05-16 2020-05-16 Outpatient STLMLC STLMLC [id number] Common 00:00:00 00:00:00 [facility] 2020-05-07 2020-05-07 Outpatient STLMLC STLMLC [id number] Common 00:00:00 00:00:00 [facility] 2020-04-02 2020-04-02 [id number] Common 11:30:00 11:30:[address] [facility] 2020-01-29 2020-01-29 [facility] [id number] Common 11:30:00 11:30:[address] [facility] 2019-12-28 2019-12-28 [facility] [id number] Common 09:45:00 09:45:[address] [facility] 2019-09-26 2019-09-26 [facility] [id number] Common 13:45:00 13:45:[address] [facility] 2019-06-14 2019-06-14 [facility] [id number] Common 15:48:00 15:48:[address] [facility] 2019-06-06 2019-06-06 [facility] [id number] Common 09:00:00 09:00:[address] [facility] 2019-06-02 2019-06-02 [facility] [id number] Common 02:38:00 02:38:[address] [facility] 2019-04-24 2019-04-24 [facility] [id number] Common 09:30:00 09:30:[address] [facility] 2019-03-28 2019-03-28 [facility] [id number] Common 13:00:00 13:00:[address] [facility] 2019-03-23 2019-03-23 [facility] [id number] Common 09:30:00 09:30:[address] [facility] 2019-02-20 2019-02-20 [facility] [id number] Common 13:45:00 13:45:[address] [facility] 2019-02-03 2019-02-03 [facility] [id number] Common 09:45:00 09:45:00 t [facility] 2019-02-01 2019-02-01 [facility] [id number] Common 16:36:00 16:36:[address] [facility] 2019-01-23 2019-01-23 [facility] [id number] Common 08:30:00 08:30:[address] [facility] 2018-11-17 2018-11-17 [facility] [id number] Common 15:15:00 15:15:[address] [facility] 2018-05-06 2018-05-06 Outpatient Lisset Darlingt [id number] Common 09:14:00 09:14:[address] [facility] 2018-05-03 2018-05-03 Outpatient Lisset Darlingt [id number] Common 08:58:00 08:58:[address] [place] [address] [facility] 2018-05-02 2018-05-02 Outpatient Lisset Darlingt [id number] Common 14:30:00 14:30:00 t [place] [address] [facility] Results Test Description Test Time Test Comments Results Result Comments Source SURGICAL 2022-10-26 11:30:00 Test Item Value Reference Range Interpretation Commdaniel tipton SURGICAL RUN DATE: (test 10/26/22 [facility] RUN TIME: 1130 Specimen Inquiry RUN USER: INTERFACE code = PATIENT: ) VANNESA CARRILLO ACCT #: [id number] LOC: MAURISIO Vasques #: [id number] AGE/SX: 37/F ROOM: RE10/22/22REG DR: Lilia Garcia MD : 87 BED: DIS: STATUS: OH E REF TLOC: SPEC #: [id number] RECD: 10/23/22844 STATUS: NICKY SIEGEL #: [id number] MALORIE: 10/22/22- SUBM DR: Noelle Rodríguez MD ENTERED: 10/23/22 SP TYPE: SURGICAL OTHR DR: ORDERED: [id number], ANATOMIC SPEC PROCEDURES: [id number] (10/23/22) TISSUES: A. BREAST BIOPSY, FEMALE LEFT CLINICAL HISTORY SAME FINAL DIAGNOSIS Breast, left 3:00 7 cm from nipple, core biopsy: Fibroadenoma. GROSS DESCRIPTION Received in formalin labeled left breast 3:00 7 cm from nipple are 3 fibroadipose coresmeasuring up to 1.3 cm (A). Technical component performed at [address] [address] Unless gross only, the diagn osis is based upon microscopic examination.Immunohistochemistry: This test was developed and its perfor marely characteristicsdetermined by this laboratory. It has not been approved nor does it need approvalby the [place] FDA. Appropriate positive and negative controls are reviewed and judgedto be acceptable. This laboratory is certified under the Clinical Laboratory ImprovementAmendments (CLIA-88) as qualified to pe rform high complexity clinical laboratory testing. CLINICAL INFORMATION 2.8 CM OVAL MASS ? fIBROADENOMA Signed Eduin Chase 10/26/22 1130 END OF REPORT
[2022-12-17] MEDS ORDERED: MORPHINE 4 MG/ML SYR ONE (23:52)
[2022-12-17] MEDS ORDERED: ONDANSETRON 4 MG/2 ML VIAL ONE (23:52)
[2022-12-17] MEDS ORDERED: KETOROLAC 30 MG/ML INJ ONE (23:52)
[2022-12-17 23:55] LABS: Absolute Lymphocytes (CBC) 2.9 K/uL (0.7-4.9); Hematocrit 40.7 % (36.0-45.0); Lymphocytes % 44.1 % (15.3-44.8); MCV 86.6 fL (80-100); MPV 9.3 fL (7.6-11.3)
[2022-12-18 00:15] LABS: Albumin 3.8 g/dL (3.4-5.0); Bilirubin Total 0.4 mg/dL (0.2-1.0); Potassium 3.4 mEq/L (3.5-5.1); Protein, Total 7.7 g/dL (6.4-8.2)
[2022-12-18 00:42] LABS: Specific Gravity 1.028 (1.005-1.030); Urine Bacteria 20-50 /HPF (<20); Urine Bilirubin NEGATIVE (Negative); Urine Blood Negative (Negative); Urine Clarity Turbid (Clear); Urine Color Yellow (Yellow); Urine Glucose NEGATIVE (Negative); Urine Mucus 4+ /HPF (None Seen); Urine Protein TRACE (Negative); Urine RBC None Seen /HPF (None Seen); Urine Urobilinogen 1+ (Normal)
--- NOTE | 2022-12-18 03:10 | ER ---
Nurse's Notes [facility] Name: Kassandra Gonsalez Age: 37 yrs Sex: Female : 1985 Arrival Date: 12/17/2022 Time: 23:00 Bed 11 Private MD: Diagnosis: Lower abdominal pain, unspecified;Left lower abdominal pain, nausea without vomiting. Presentation: 12/17 23:27 Chief complaint: Patient states: left lower abdominal pain starting today. Coronavirus lg3 screen: Client denies travel out of the [place] in the last 14 days. At this time, the client does not indicate any symptoms associated with coronavirus-19. Ebola Screen: No symptoms or risks identified at this time. Initial Sepsis Screen: Does the patient meet any 2 criteria? No. Patient's initial sepsis screen is negative. Does the patient have a suspected source of infection? No. Patient's initial sepsis screen is negative. Risk Assessment: Do you want to hurt yourself or someone else? Patient reports no desire to harm self or others. Onset of symptoms was December 17, 2022. 23:27 Method Of Arrival: Ambulatory lg3 23:27 Acuity: GIOVANI 3 lg3 Triage Assessment: 23:29 General: Appears in no apparent distress. uncomfortable, Behavior is calm, cooperative. lg3 Pain: Complains of pain in left lower quadrant. EENT: No deficits noted. No signs and/or symptoms were reported regarding the EENT system. Neuro: No deficits noted. Rivera Agitation-Sedation Scale (RASS): 0 - Alert and Calm Level of Consciousness is awake, alert, obeys commands, Oriented to person, place, time, situation. Cardiovascular: No deficits noted. Denies chest pain, shortness of breath. Respiratory: No deficits noted. Airway is patent Respiratory effort is even, unlabored, Respiratory pattern is regular, symmetrical. GI: Abdomen is flat, non-distended, Reports lower abdominal pain, cramping, nausea. : No deficits noted. No signs and/or symptoms were reported regarding the genitourinary system. Derm: No deficits noted. No signs and/or symptoms reported regarding the dermatologic system. Skin is intact, is healthy with good turgor, Skin is dry, Skin is normal, Skin temperature is warm. Musculoskeletal: No deficits noted. No signs and/or symptoms reported regarding the musculoskeletal system. Circulation, motion, and sensation intact. Range of motion: intact in all extremities. 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 - Social history:: Smoking status: Patient reports the use of cigarette tobacco products, denies chronic smoking, but will smoke occasionally, Patient uses alcohol, occasionally. - Family history:: not pertinent. Screenin:30 [facility] ED Fall Risk Assessment (Adult) History of falling in the last 3 months, lg3 including since admission No falls in past 3 months (0 pts). Abuse screen: Denies threats or abuse. Denies injuries from another. Nutritional screening: No deficits noted. Tuberculosis screening: No symptoms or risk factors identified. Assessment: 23:30 General: see triage assessment . lg3 12/18 00:40 Reassessment: Patient appears in no apparent distress at this time. No changes from 3 previously documented assessment. Patient and/or family updated on plan of care and expected duration. Pain level reassessed. Patient is alert, oriented x 3, equal unlabored respirations, skin warm/dry/pink. 02:40 Reassessment: Patient appears in no apparent distress at this time. No changes from 3 previously documented assessment. Patient and/or family updated on plan of care and expected duration. Pain level reassessed. Patient is alert, oriented x 3, equal unlabored respirations, skin warm/dry/pink. Patient states feeling better. Patient states symptoms have improved. Vital Signs: 12/17 23:27 BP 119 / 87; Pulse 72; Resp 17 S; Temp 98.5(O); Pulse Ox 100% on R/A; Weight 75.3 kg lg3 (R); Height 5 ft. 5 in. (R); 12/18 00:30 BP 121 / 81; Pulse 77; Resp 17 S; Pulse Ox 100% on R/A; lg3 02:30 BP 126 / 77; Pulse 74; Resp 16 S; Pulse Ox 100% on R/A; lg3 12/17 23:27 Body Mass Index 27.62 (75.30 kg, 165.1 cm) lg3 ED Course: 12/17 23:06 Patient arrived in ED. ja2 23:08 Luis Childs MD is Attending Physician. sp4 23:29 Triage completed. lg3 23:29 Arm band placed on right wrist. lg3 23:30 Patient has correct armband on for positive identification. Placed in gown. Bed in low lg3 position. Call light in reach. Side rails up X 1. Door closed. Noise minimized. Warm blanket given. 23:44 Inserted saline lock: 20 gauge in left antecubital area, using aseptic technique. Blood ah1 collected. 23:45 CBC with Diff Sent. ah1 23:45 CMP Sent. ah1 23:45 Lipase Sent. ah1 12/18 00:07 CMP Sent. ah1 00:07 Lipase Sent. ah1 00:07 Test, Urine Sent. ah1 00:07 Urinalysis w/ reflexes Sent. ah1 01:08 CT Abd/Pelvis - IV Contrast Only In Process Unspecified. EDMS 03:36 No provider procedures requiring assistance completed. IV discontinued, intact, pf1 bleeding controlled, No redness/swelling at site. Pressure dressing applied. Administered Medications: 12/17 23:49 Drug: morphine IVP or IV 4 mg Route: IVP; Infused Over: 4 mins; Site: left antecubital; lg3 23:49 Drug: Ketorolac IVP 30 mg Route: IVP; Site: left antecubital; lg3 23:49 Drug: Ondansetron IVP 4 mg Route: IVP; Site: left antecubital; lg3 12/18 03:20 Drug: [place] PO 10 mg-325 mg 1 tabs Route: PO; pf1 03:20 Drug: Promethazine PO 25 mg Route: PO; pf1 03:20 Drug: Ibuprofen PO 400 mg Route: PO; pf1 Medication: 12/17 23:30 VIS not applicable for this client. lg3 Outcome: 12/18 03:09 Discharge ordered by . sp4 03:36 Discharged to home ambulatory, with family. pf1 03:36 Condition: improved 03:36 Discharge instructions given to patient, Instructed on discharge instructions, follow up and referral plans. Demonstrated understanding of instructions, follow-up care, medications, Prescriptions given X 4. 03:37 Patient left the ED. pf1 Signatures: Dispatcher [employer] Indigo Constantino RN RN lg3 Angela David Pamala, RN RN pf1 Luis Childs MD MD sp4 Renu Mistry
--- NOTE | 2022-12-18 03:10 | EDPHYS ---
Physician Documentation [facility] Name: Kassandra Gonsalez Age: 37 yrs Sex: Female : 1985 Arrival Date: 12/17/2022 Time: 23:00 Bed 11 Private MD: ED Physician Luis Childs HPI: 12/17 23:08 This 37 yrs old Female presents to ER via Unassigned with complaints of sp4 Abdominal Pain. 23:08 Abd pain.. sp4 12/18 02:50 Very pleasant 37-year-old female presents with acute onset of left lower quadrant sp4 abdominal pain at 6:30 PM associated with nausea and cloudy urine. Patient reported last menstrual period 1 week ago ending today. Patient reports cramping abdominal pain. Patient reported history of 3 C-sections in the past. Pain at this time is 5 out of 10 on a scale. Patient has no known drug allergies. Pain is worse with laying down.. 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 - Social history:: Smoking status: Patient reports the use of cigarette tobacco products, denies chronic smoking, but will smoke occasionally, Patient uses alcohol, occasionally. - Family history:: not pertinent. ROS: 12/18 02:52 Constitutional: Negative for fever, chills, and weight loss, Eyes: Negative for injury, sp4 pain, redness, and discharge, ENT: Negative for injury, pain, and discharge, Neck: Negative for injury, pain, and swelling, Cardiovascular: Negative for chest pain, palpitations, and edema, Respiratory: Negative for shortness of breath, cough, wheezing, and pleuritic chest pain, Abdomen/GI: Negative for vomiting, diarrhea, and constipation, positive for abdominal pain and nausea. Back: Negative for injury and pain, : Negative for injury, bleeding, discharge, and swelling, positive for cloudy urine. MS/Extremity: Negative for injury and deformity, Skin: Negative for injury, rash, and discoloration, Neuro: Negative for headache, weakness, numbness, tingling, and seizure, Psych: Negative for depression, anxiety, Allergy/Immunology: Negative for hives, rash, and allergies Endocrine: Negative for neck swelling, polydipsia, polyuria, polyphagia, and weight changes Hematologic/Lymphatic: Negative for swollen nodes, abnormal bleeding, and unusual bruising Exam: 02:52 Constitutional: This is a well developed, well nourished patient who is awake, alert, sp4 and in no acute distress. Head/Face: Normocephalic, atraumatic. Eyes: Pupils equal round and reactive to light, extra-ocular motions intact. Lids and lashes normal. Conjunctiva and sclera are not injected. Cornea within normal limits. Periorbital areas with no swelling, redness, or edema. ENT: Nares patent. No nasal discharge, no septal abnormalities noted. Tympanic membranes are normal and external auditory canals are clear. Oropharynx with no redness, swelling, or masses, exudates, or evidence of obstruction, uvula midline. Mucous membranes moist. Neck: Trachea midline, no thyromegaly or masses palpated, and no cervical lymphadenopathy. Supple, full range of motion without nuchal rigidity, or vertebral point tenderness. No Meningismus. Chest/axilla: Normal chest wall appearance and motion. Nontender with no deformity. No lesions are appreciated. Cardiovascular: Regular rate and rhythm with a normal S1 and S2. No gallops, murmurs, or rubs. Normal PMI, no JVD. No pulse deficits. Respiratory: Lungs have equal breath sounds bilaterally, clear to auscultation and percussion. No rales, rhonchi or wheezes noted. No increased work of breathing, no retractions or nasal flaring. Abdomen/GI: Soft, non-tender, with normal bowel sounds. No distension or tympany. No guarding or rebound. No evidence of tenderness throughout. Back: No spinal tenderness. No costovertebral tenderness. Skin: Warm, dry with normal turgor. Normal color with no rashes, no lesions, and no evidence of cellulitis. MS/ Extremity: Pulses equal, no cyanosis. Neurovascular intact. Full, normal range of motion. Neuro: Awake and alert, GCS 15, oriented to person, place, time, and situation. Cranial nerves II-XII grossly intact. Motor strength 5/5 in all extremities. Sensory grossly intact. Psych: Awake, alert, with orientation to person, place and time. Behavior, mood, and affect are within normal limits Vital Signs: 12/17 23:27 BP 119 / 87; Pulse 72; Resp 17 S; Temp 98.5(O); Pulse Ox 100% on R/A; Weight 75.3 kg lg3 (R); Height 5 ft. 5 in. (R); 12/18 00:30 BP 121 / 81; Pulse 77; Resp 17 S; Pulse Ox 100% on R/A; lg3 02:30 BP 126 / 77; Pulse 74; Resp 16 S; Pulse Ox 100% on R/A; lg3 12/17 23:27 Body Mass Index 27.62 (75.30 kg, 165.1 cm) lg3 MDM: 12/17 23:11 Patient medically screened. sp4 12/18 02:51 Differential Diagnosis Lower abdominal pain. Acute diverticulitis. Acute renal stone. sp4 Ovarian cyst. Ruptured ovarian cyst. Bleeding ovarian cyst. Ovarian torsion. Data reviewed: vital signs, nurses notes, old medical records, lab test result(s), cardiac enzymes, CBC, electrolytes, hepatic panel, urinalysis, UPT: negative. Consideration of Admission/Observation Escalation of care including admission/observation considered. ED course: IMPRESSION: No definite acute inflammatory process in the abdomen or pelvis. Suggestion of left lower breast mass. Recommend nonemergent ultrasound.. ED course: Labs are unremarkable.. 03:06 ED course: Patient does have significant tenderness left lower abdominal quadrant, sp4 there is no rebound however patient may have diverticulitis that is early or colitis there is early in this does not show up on the CT. since CT is negative and feel it safe for patient to be released home at this time with p.o. as needed pain and nausea medications also little liquid diet for the next 24 hours. Release will be provided for the next 3 days. 12/17 23:11 Order name: CBC with Diff; Complete Time: 02:47 sp4 12/17 23:11 Order name: CMP; Complete Time: 02:47 sp4 12/17 23:11 Order name: Lipase; Complete Time: 02:47 sp4 12/17 23:11 Order name: Test, Urine; Complete Time: 02:47 sp4 12/17 23:11 Order name: Urinalysis w/ reflexes; Complete Time: 02:47 sp4 12/17 23:30 Order name: CT Abd/Pelvis - IV Contrast Only sp4 12/17 23:11 Order name: IV Saline Lock; Complete Time: 23:45 sp4 12/17 23:11 Order name: Labs collected and sent; Complete Time: 23:45 sp4 Administered Medications: 12/17 23:49 Drug: morphine IVP or IV 4 mg Route: IVP; Infused Over: 4 mins; Site: left antecubital; lg3 23:49 Drug: Ketorolac IVP 30 mg Route: IVP; Site: left antecubital; lg3 23:49 Drug: Ondansetron IVP 4 mg Route: IVP; Site: left antecubital; lg3 12/18 03:20 Drug: [place] PO 10 mg-325 mg 1 tabs Route: PO; pf1 03:20 Drug: Promethazine PO 25 mg Route: PO; pf1 03:20 Drug: Ibuprofen PO 400 mg Route: PO; pf1 Disposition Summary: 12/18/22 03:09 Discharge Ordered Location: Home sp4 Problem: new sp4 Symptoms: have improved sp4 Condition: Stable sp4 Diagnosis - Lower abdominal pain, unspecified sp4 - Left lower abdominal pain, nausea without vomiting. sp4 Followup: sp4 - With: Private Physician - When: As needed - Reason: Recheck today's complaints Discharge Instructions: - Discharge Summary Sheet sp4 - Abdominal Pain, Adult, [id number] sp4 Forms: - Prescription Opioid Use sp4 Prescriptions: - naproxen sodium 220 mg Oral tablet - take 2 tablet by ORAL route every 8 hours PRN pain; 30 tablet; Refills: 0, sp4 Product Selection Permitted - Levsin 0.125 mg Oral Tablet - take 1 tablet by ORAL route every 8 hours PRN abdominal pain - take with other sp4 medications; 30 tablet; Refills: 0, Product Selection Permitted - Tramadol 50 mg Oral Tablet - take 1 tablet by ORAL route every 6 hours as needed for pain; 30 tablet; sp4 Refills: 0, Product Selection Permitted - promethazine 25 mg Oral Tablet - take 1 tablet by ORAL route every 6 hours As needed PRN nausea; 30 tablet; sp4 Refills: 0, Product Selection Permitted Signatures: Dispatcher [employer] Constantino RN RN lg3 Brina Hernandez RN RN pf1 Luis Childs MD MD sp4
[2022-12-18] MEDS ORDERED: PROMETHAZINE 25 MG TABLET ONE (03:22)
[2022-12-18] MEDS ORDERED: HYDROCODONE/APAP 10/325 TAB ONE (03:22)
[2022-12-18] MEDS ORDERED: IBUPROFEN 400 MG TAB ONE (03:22)
[2022-12-18 03:47] VITALS: BP 119/87; TEMP 98.5; O2SAT 100
--- NOTE | 2022-12-18 13:20 | RAD REPORT ---
EXAM DESCRIPTION: CT - Abdomen Pelvis W Contrast - 12/18/2022 2:19 am CLINICAL HISTORY: LLQ pain COMPARISON: None. TECHNIQUE: CT ABDOMEN PELVIS WITH IV CONTRAST on 12/17/2022 11:30 PM CDT This exam was performed according to our departmental dose-optimization program, which includes autom ated exposure control, adjustment of the mA and/or kV according to patient size and/or use of iterati ve reconstruction technique. FINDINGS: Lung bases are clear. There is an indeterminate lobulated mass in the lower lateral aspect of the left breast measuring 2.8 cm. Abdomen: The liver is normal in appearance. There is no biliary dilatation. Gallbladder is normal in appearance. The pancreas and spleen are normal in appearance. The adrenal glands and kidneys are unre markable. Abdominal aorta is normal in course and caliber without aneurysm. There is no free air. There is no r etroperitoneal adenopathy. Pelvis: There is no bowel obstruction. Urinary bladder is unremarkable. There is no free fluid. Uteru s is normal in size. Appendix is normal. Skeleton: There are no acute osseous findings. No suspicious bony lesions. IMPRESSION: No definite acute inflammatory process in the abdomen or pelvis. Suggestion of left lower breast mass. Recommend nonemergent ultrasound. Electronically signed by: Alberto Benjamin MD 12/18/2022 1:22 AM CDT Due to temporary technical issues with the PACS/Fluency reporting system, reports are being signed by the in house radiologist without review as a courtesy to ensure prompt reporting. The interpreting r adiologist is fully responsible for the content of the report.
== END 2022-12-18 03:37 | disposition home or self-care (01) ==
LOC: ER 23:00
DX: R10.32 Left lower quadrant pain (principal); R11.0 Nausea; F17.210 Nicotine dependence, cigarettes, uncomplicated; F90.9 Attention-deficit hyperactivity disorder, unspecified type
CPT/HCPCS: 85025; 81001; 36415; 81025; 83690; 80053; 74177; 96375; 96374; 99284; Q9967; Q0169; J2405